=== PATIENT | female | born 1970 | race Caucasian/White ===

== ENCOUNTER → 2016-08-28 | Outpatient (REF) | payer MEDICARE, OTHER ==
[~2016-08-28] MED LIST: ASPI-479; FEXO-95 PO; LRT10T; LVT.025T; PANT40TA3 PO; PRED20TA PO; RANI300T4 PO; VITA-198 PO
[2016-08-28 14:13] LABS: BASOPHILS % (AUTO) 0 % (0-2); EOSINOPHILS % (AUTO) 0 % (0-4); LYMPHOCYTES # (AUTO) 1.2 X10^3; MEAN CORPUSCULAR HEMOGLOBIN 28.2 PG (26.0-34.0); MEAN CORPUSCULAR HGB CONC 32.7 g/dL (31.0-37.0); MEAN CORPUSCULAR VOLUME 86 FL (80-100); MEAN PLATELET VOLUME 10.4 FL (6.0-9.5); MONOCYTES # (AUTO) 0.7 X10^3; MONOCYTES % (AUTO) 8 % (3-11); NEUTROPHILS # (AUTO) 6.9 X10^3; NEUTROPHILS % (AUTO) 78 % (51-67); PLATELET COUNT 281 10^3uL (150-450); WHITE BLOOD COUNT 8.94 10^3uL (4.0-11.0)
[2016-08-28 17:28] LABS: ALBUMIN 4.6 g/dL (3.4-5.0)
[2016-08-28 18:15] LABS: BILIRUBIN,URINE Negative (Negative); COLOR,URINE Yellow; GLUCOSE, URINE (UA) Negative (Negative); LEUKOCYTE ESTERASE ,URINE 1+ (Negative); PH,URINE 6.5 (5.0 - 8.0); UROBILINOGEN,URINE 0.2 mg/dL (0.2-1.0)
[2016-08-28 18:17] LABS: CLARITY,URINE Slightly Cloudy
[2016-08-28 18:21] LABS: URINE CENTRIFUGED VOLUME 12 mL
== END ==
LOC: LAB 13:47
PROVIDERS: ATTEND Nurse Practitioner Family
DX: R10.13 Epigastric pain (principal); E03.9 Hypothyroidism, unspecified
CPT/HCPCS: 80053; 81003; 81015; 82150; 83690; 84443; 85025; 87077; 87088; 87186

== ENCOUNTER → 2016-09-12 | Outpatient (CLI) | payer MEDICARE, OTHER | LOC: LAB 15:22 | PROVIDERS: ATTEND Nurse Practitioner Family | DX: R10.11 Right upper quadrant pain (principal) | CPT/HCPCS: 81025; 87088 ==

== ENCOUNTER → 2016-09-12 | Outpatient (CLI) | payer MEDICARE, OTHER | LOC: RAD 11:01 | PROVIDERS: ATTEND Nurse Practitioner Family | DX: R10.11 Right upper quadrant pain (principal); K44.9 Diaphragmatic hernia without obstruction or gangrene | CPT/HCPCS: 74176 ==

== ENCOUNTER → 2016-09-16 | Outpatient (CLI) | payer MEDICARE, OTHER | LOC: RAD 08:39 | PROVIDERS: ATTEND Nurse Practitioner Family | DX: R10.13 Epigastric pain (principal) | CPT/HCPCS: 76700 ==

== ENCOUNTER → 2016-09-23 | Outpatient (CLI) | payer MEDICARE, OTHER ==
[2016-09-23 16:36] LABS: MEAN CORPUSCULAR HEMOGLOBIN 28.2 PG (26.0-34.0); MEAN CORPUSCULAR HGB CONC 33.1 g/dL (31.0-37.0); MEAN CORPUSCULAR VOLUME 85 FL (80-100); MEAN PLATELET VOLUME 10.5 FL (6.0-9.5); PLATELET COUNT 262 10^3uL (150-450); WHITE BLOOD COUNT 7.99 10^3uL (4.0-11.0)
[2016-09-23 17:13] LABS: ALBUMIN 4.4 g/dL (3.4-5.0); ANION GAP 17.3 MEQ/L (3-15); TOTAL PROTEIN 7.6 g/dL (6.4-8.5)
[2016-09-23 17:46] LABS: BAND NEUTROPHILS % 0 % (0-6); EOSINOPHILS % 0 % (0-4); LYMPHOCYTES # 1.1 #; MONOCYTES # 0.4 #; MONOCYTES % 5 % (3-11); RBC MORPH NORMAL (NORMAL); SEGMENTED NEUTROPHILS % 81 % (51-67); TOTAL CELLS COUNTED 100
== END ==
LOC: LAB 16:17
PROVIDERS: ATTEND Surgery
DX: I10 Essential (primary) hypertension (principal); D50.9 Iron deficiency anemia, unspecified; R10.9 Unspecified abdominal pain
CPT/HCPCS: 36415; 80053; 85007; 85027

== ENCOUNTER → 2016-09-24 | Outpatient (CLI) | payer MEDICARE, OTHER ==
[2016-09-24 16:57] LABS: BILIRUBIN,URINE Negative (Negative); CLARITY,URINE Clear; COLOR,URINE Yellow; GLUCOSE, URINE (UA) Negative (Negative); LEUKOCYTE ESTERASE, URINE 3+ (Negative); UROBILINOGEN,URINE 0.2 mg/dL (0.2-1.0)
[2016-09-24 17:07] LABS: RBC,URINE 0-2 /HPF; URINE CENTRIFUGED VOLUME 12 mL
== END ==
LOC: LAB 16:39
PROVIDERS: ATTEND Surgery
DX: R31.0 Gross hematuria (principal); R82.90 Unspecified abnormal findings in urine
CPT/HCPCS: 81003; 81015; 87088

== ENCOUNTER 2016-09-25 09:12 | Day surgery (SDC) | payer MEDICARE, OTHER ==
[~2016-09-25] VITALS: Ht 165.1 cm; Wt 81.8 kg
[2016-09-25] VITALS (7 sets, daily range): BP systolic 124–154; BP diastolic 58–95
[~2016-09-25 09:12] MED LIST changes: +ACETAMINOPHEN 500 MG TAB (TYLENOL) PO SCH; -ASPI-479; +BUPIVACAINE/EPINEPHRINE 0.25%-1:200,000 (MARCAINE) 30 ML VIAL INJ ONE; -FEXO-95 PO; +LACTATED RINGERS 1,000 ML IV SCH; -LRT10T; -LVT.025T; -PANT40TA3 PO; -PRED20TA PO; -RANI300T4 PO; +SODIUM CHLORIDE FLUSH 3 ML SYR IV PRN; -VITA-198 PO; +oxyCODONE IMMEDIATE RELEASE 5 MG (OXYIR) TAB PO SCH
[2016-09-25] MEDS ORDERED: PROPOFOL 20 ML IV ONE (12:13)
[2016-09-25] MEDS ORDERED: MIDAZOLAM 2 MG/2 ML (VERSED) VIAL ONE (12:13)
[2016-09-25] MEDS ORDERED: ALFENTANIL 500 MCG/ML (ALFENTA) 5 ML AMP IV ONE (12:13)
[2016-09-25] MEDS ORDERED: ROCURONIUM 50 MG/5 ML (ZEMURON) VIAL IV ONE (12:14)
[2016-09-25] MEDS ORDERED: ONDANSETRON 2 MG/ML (Z0FRAN) 2 ML VIAL ONE (12:38)
[2016-09-25] MEDS ORDERED: diphenhydrAMINE 50 MG/ML INJ (BENADRYL) ONE (12:38)
[2016-09-25] MEDS ORDERED: NEOSTIGMINE 1 MG/ML SYRINGE ONE (13:37)
[2016-09-25] MEDS ORDERED: GLYCOPYRROLATE 0.2 MG/ML (ROBINUL) 1 ML VIAL ONE (13:37)
[2016-09-25] MEDS ORDERED: KETOROLAC 60 MG/2 ML (TORADOL) VIAL IM ONE (13:37)
[2016-09-25] MEDS ORDERED: ONDANSETRON 2 MG/ML (Z0FRAN) 2 ML VIAL IV PRN (14:45)
[2016-09-25] MEDS ORDERED: HYDROcodone/APAP 5 MG/325 MG (NORCO) TAB PO PRN (14:45)
[2016-09-25] MEDS ORDERED: PROMETHAZINE 25 MG/ML (PHENERGAN) 1 ML VIAL ONE (15:19)
[2016-09-25] MEDS ORDERED: SODIUM CHLORIDE FLUSH 10 ML SYR IV PRN (15:20)
[2016-09-25] MEDS ORDERED: SODIUM CHLORIDE FLUSH 10 ML ONE (15:20)
[2016-09-25] MEDS ORDERED: PROMETHAZINE HCL INJ 12.5 MG in SODIUM CHLORIDE 25 ML IV ONE (15:20)
== END 2016-09-25 16:31 | disposition home or self-care (01) ==
LOC: ASC 09:12
PROVIDERS: ATTEND Surgery
PROC: 0FT44ZZ Resection of Gallbladder, Percutaneous Endoscopic Approach (ICD-10-PCS; principal; 2016-09-25)
PROC: BF10YZZ Fluoroscopy of Bile Ducts using Other Contrast (ICD-10-PCS; 2016-09-25)
DX: K80.10 Calculus of gallbladder with chronic cholecystitis without obstruction (principal)
CPT/HCPCS: 47563; 74300; 88304; A9270; J1200; J1885; J2250; J2710; J3490; J7120; Q9967